=== PATIENT | female | born 1950 | race Caucasian/White ===

== ENCOUNTER → 2016-05-21 | Outpatient (CLI) | payer MEDICARE, OTHER ==
[~2016-05-21] MED LIST: ANTIVERT25 MG PO; CATAPRES0.2 MG PO; COLACE100 MG PO; CPAP INH; FISH OIL1000 MG PO; FLEXERIL10 MG PO; LAMICTAL100 MG PO; LEVOTHROID(SY175 MCG PO; LIDODERM 5% P1 PATCH TOP; NEURONTIN300 MG PO; OCUVITE WITH L1 EACH PO; PERCOCET 5-3251 EACH PO; PREMARIN VAG; REFRESH PLUS1 EACH OPHTH; SEROQUEL200 MG PO; SINGULAIR10 MG PO; TENS 5021 EACH TOP; TRICOR 160 MG160 MG PO; ULTRAM50 MG PO; VITAMIN D1000 UNIT PO; ZANAFLEX4 MG PO; ZOLOFT100 MG PO; ZYRTEC10 M1 PO
== END | disposition disaster alternative care site (69) ==
LOC: GBCOE 13:10
DX: Z12.31 Encounter for screening mammogram for malignant neoplasm of breast (principal)
CPT/HCPCS: G0202

== ENCOUNTER → 2016-11-15 | Outpatient (CLI) | payer MEDICARE, OTHER | LOC: GKIC 12:36 | DX: M19.011 Primary osteoarthritis, right shoulder (principal); M24.011 Loose body in right shoulder ==